=== PATIENT | female | born 1955 ===

== ENCOUNTER → 2021-09-26 | Outpatient (CLI) | payer MEDICARE, BC | END | disposition home or self-care (01) | LOC: LAB SHORT 13:21 → LAB 13:21 → PLD 13:21 | DX: C54.1 Malignant neoplasm of endometrium (principal); N95.0 Postmenopausal bleeding | CPT/HCPCS: 88305 ==

== ENCOUNTER → 2022-06-05 | Outpatient (CLI) | payer MEDICARE, BC | END | disposition home or self-care (01) | LOC: PLD 12:50 → LAB SHORT 12:50 | DX: L57.0 Actinic keratosis (principal) | CPT/HCPCS: 88305 ==

== ENCOUNTER 2022-07-11 06:44 | Day surgery (SDC) | payer MEDICARE, BC ==
[~2022-07-11] VITALS: Ht 170.2 cm; Wt 113.9 kg
[2022-07-11] VITALS (9 sets, daily range): BP systolic 97–150; BP diastolic 46–86
[~2022-07-11 06:44] MED LIST: MELO7.5
--- NOTE | 2022-07-11 08:27 | NUR ---
07/11/22 0827 DEBBIE RAYO NOTED BLISTER ON BACK OF RIGHT KNEE PRIOR TO OR ARRIVAL.
--- NOTE | 2022-07-11 09:37 | NUR ---
DR. TERAN AT DISCUSSING D/C INSTRUCTIONS AND MEDICATION WITH PT AND HER .
--- NOTE | 2022-07-11 10:18 | NUR ---
Ambulatory in Day Surgery WITH [facility], PT REPORTS SHE HAS A "BAD RIGHT HIP", ABLE TO VOID PRIOR TO D/C. OUT OF DEPT VIA W/C. WILL DRIVE HER HOME. PT STABLE
== END 2022-07-11 22:42 | disposition home or self-care (01) ==
LOC: ORSCMMR 06:44 → ORD 08:15 → ORSCMMR 08:15
PROVIDERS: Orthopaedic Surgery
PROC: 01N50ZZ Release Median Nerve, Open Approach (ICD-10-PCS; principal; 2022-07-11 08:00)
PROC: 01N40ZZ Release Ulnar Nerve, Open Approach (ICD-10-PCS; principal; 2022-07-11 08:00)
DX: G56.03 Carpal tunnel syndrome, bilateral upper limbs (principal); G56.22 Lesion of ulnar nerve, left upper limb; E66.01 Morbid (severe) obesity due to excess calories; Z68.39 Body mass index [BMI] 39.0-39.9, adult
CPT/HCPCS: A9270; J0690; J1100; J2250; J2370; J2405; J2704; J3010; J7120

== ENCOUNTER 2022-11-10 06:06 | Day surgery (SDC) | payer MEDICARE, BC ==
[~2022-11-10] VITALS: Ht 170.2 cm; Wt 111.3 kg
[2022-11-10 09:02] VITALS: BP 113/60
--- NOTE | 2022-11-10 09:46 | NUR ---
11/10/22 0946 Olga Cotton 1.5 ML OF FENTANYL WAS WASTED INSTEAD OF 1.75 ML. USED 12.5 MCG WAS USED.
== END 2022-11-10 09:52 | disposition home or self-care (01) ==
LOC: ORSCSDS 06:06
PROVIDERS: Orthopaedic Surgery
PROC: 01S40ZZ Reposition Ulnar Nerve, Open Approach (ICD-10-PCS; principal; 2022-11-10 07:30)
PROC: 01N50ZZ Release Median Nerve, Open Approach (ICD-10-PCS; principal; 2022-11-10 07:30)
DX: G56.01 Carpal tunnel syndrome, right upper limb (principal); G56.21 Lesion of ulnar nerve, right upper limb; E66.9 Obesity, unspecified; Z68.38 Body mass index [BMI] 38.0-38.9, adult; Z79.899 Other long term (current) drug therapy
CPT/HCPCS: A9270; J0171; J0690; J2250; J2704; J2795; J3010; J7120

== ENCOUNTER 2023-01-02 06:22 | Day surgery (SDC) | payer MEDICARE, BC ==
[2023-01-02] VITALS (22 sets, daily range): BP systolic 87–126; BP diastolic 42–79
[~2023-01-02] VITALS: Ht 170 cm; Wt 110.4 kg
[~2023-01-02 06:22] MED LIST changes: +APHEN325 MG PO
--- NOTE | 2023-01-02 16:55 | NUR ---
SHIFT SUMMARY PATIENT POD 0 R YANE. AQUACEL TO RIGHT HIP, C/D/I. POLAR KRISTEN, SCD'S IN PLACE. PATIENT WORKED WITH PT AND IS CURRENTLY UP IN THE CHAIR WITH 1 SBA AND ZACKERY, FWW. MEDICATED PER EMAR AND TOLERATING PO INTAKE. DENIES N/V. AWAITING FIRST POST OP VOID. SPINAL BLOCK IN SURGERY, PATIENT ABLE TO WIGGLE ALL EXT'S. VSS, PATIENT IS A/OX4 AND CALL LIGHT IS IN REACH.
[2023-01-03 04:01] VITALS: BP 135/60
--- NOTE | 2023-01-03 04:43 | NUR ---
SHIFT SUMMARY PT STATUS POST R TOTAL HIP. PT HAS RESTED OFF AND ON T/O THE NIGHT. INTERMITTENT PAIN RELIEVED WITH MEDS PER EMAR. PT HAS BEEN UP AND AMBULATING. PT VOIDING AND TOLERATING PO INTAKE. DRESSING C/D/I TO RIGHT HIP. PLAN IS FOR DC TODAY.
[2023-01-03 05:27] LABS: BASOPHILS ABSOLUTE AUTO 0.02 K/mm3 (0.00-0.23); BASOPHILS PERCENT AUTO 0 % (0-2); EOSINOPHILS ABSOLUTE AUTO 0.02 K/mm3 (0.00-0.68); EOSINOPHILS PERCENT AUTO 0 % (0-6); Hematocrit 29.7 % (33.0-51.0); Hemoglobin 10.1 g/dL (11.5-16.0); IMMATURE GRAN ABSOLUTE AUTO 0.04 K/mm3 (0.00-0.10); IMMATURE GRAN PERCENT AUTO 0 % (0-1); LYMPHOCYTES ABSOLUTE AUTO 1.42 K/mm3 (0.84-5.20); LYMPHOCYTES PERCENT AUTO 14 % (21-46); MONOCYTES ABSOLUTE AUTO 0.75 K/mm3 (0.16-1.47); MONOCYTES PERCENT AUTO 7 % (4-13); Mean Corpuscular HGB 30.1 pg (26.0-34.0); Mean Corpuscular Volume 89 fL (80-100); Mean Platelet Volume 10.9 fL (9.1-12.4); NEUTROPHILS ABSOLUTE AUTO 7.93 K/mm3 (1.96-9.15); NEUTROPHILS PERCENT AUTO 78 % (41-73); Platelet Count 194 K/mm3 (150-400); RDW Coefficient Variation 12.9 % (11.7-14.2); RDW Standard Deviation 41.8 fL (35.1-46.3); Red Blood Cell Count 3.35 M/mm3 (3.80-5.20); White Blood Cell Count 10.18 K/mm3 (4.00-11.30)
[2023-01-03 05:47] LABS: Bun/Creatinine Ratio 15.7 (12.0-20.0); Calcium, Blood 8.7 mg/dL (8.5-10.1); Creatinine, Blood 1.02 mg/dL (0.40-1.00)
[2023-01-03] MEDS ORDERED: ASPI81CH PO (07:17)
[2023-01-03] MEDS ORDERED: Percocet 5-3251 EACH PO (07:17)
[2023-01-03 07:28] VITALS: BP 90/56
--- NOTE | 2023-01-03 11:09 | NUR ---
DISCHARGE NOTE: PATIENT AND WERE EDUCATED ON DISCHARGE INSTRUCTIONS. BOTH VERBALIZED UNDERSTANDING OF INSTRUCTIONS AND HAD NO FURTHER QUESTIONS AT THIS TIME. HARD PERSCRIPTIONS WERE PLACED IN DISCHARGE FOLDER. IV WAS TAKEN OUT AND WNL. PAIN IS MANAGED WITH PO PAIN MEDS. HER RIGHT HIP HAS AN AQUACEL THAT IS C/D/I. DENIES NUMBNESS OR TINGLING IN ALL EXTREMITIES. SHE IS A SBA WITH FWW AND GAIT BELT. PATIENT IS DRESSED AND HAS PERSONAL ITEMS IN THE ROOM GATHERED. SHE WAS WHEELCHAIRED OUT TO HER HUSBANDS CAR TO BE TAKEN HOME. SHE IS VOIDING AND TOLERATING PO INTAKE.
== END 2023-01-03 11:03 | disposition home or self-care (01) ==
LOC: ORSCMMR 06:22 → ORD 07:30 → ORSCMMR 07:30 → SURS 10:24 → ORSCMMR 01-03 11:03
PROVIDERS: Orthopaedic Surgery
PROC: 0SR90JZ Replacement of Right Hip Joint with Synthetic Substitute, Open Approach (ICD-10-PCS; principal; 2023-01-02 07:30)
DX: M16.11 Unilateral primary osteoarthritis, right hip (principal); E66.9 Obesity, unspecified; Z68.38 Body mass index [BMI] 38.0-38.9, adult; N18.9 Chronic kidney disease, unspecified
CPT/HCPCS: 36415; 72170; 80048; 85025; 97110; 97116; 97162; A9270; C1776; J0171; J0690; J0735; J1885; J2704; J2795; J3010; J7120

== ENCOUNTER 2024-03-18 08:49 | Day surgery (SDC) | payer MEDICARE, BC ==
[~2024-03-18] VITALS: Ht 170.2 cm; Wt 105.7 kg
[2024-03-18] VITALS (13 sets, daily range): BP systolic 118–143; BP diastolic 53–95
[~2024-03-18 08:49] MED LIST changes: +ACET500 PO; +ASPI81CH PO; +Acetaminophen 500 MG Tab PO SCH; +CeFAZolin Sodium 2,000 MG in NS 100 ML IV SCH; +Chlorhexidine Mouth Care 15 ML UDC MT SCH; +Lactated Ringer's 1,000 ML IV SCH; +OxyCODONE HCL 10 MG TABCR PO SCH; +Percocet 5-3251 EACH PO; +Ropivacaine 0.5% HCl/Pf 123.125 MG,EPINEPHrine HCL 0.25 MG,Ketorolac Tromethamine 15 MG... INFIL SCH; +Tranexamic Acid 100 ML IV SCH
--- NOTE | 2024-03-18 09:09 | NUR ---
PATIENT AMBULATED INTO DAY SURGERY USING TWO WALKING STICKS, ACCOMPANIED BY , RAKESH. PATIENT GAVE PURSE AND WALKING STICKS TO RAKESH FOR SAFE KEEPING.
[2024-03-18] MEDS ORDERED: MAGNESIUM250 M1 PO (09:15)
[2024-03-18] MEDS ORDERED: CeFAZolin Sodium 2,000 MG VIAL ONE (09:43)
[2024-03-18] MEDS ORDERED: DiphenhydrAMINE HCL 25 MG Cap PO PRN (10:45)
[2024-03-18] MEDS ORDERED: Bisacodyl 10 MG Supp PR PRN (10:45)
[2024-03-18] MEDS ORDERED: OxyCODONE HCL 5 MG TAB PO PRN ×2 (10:50→11:00)
[2024-03-18] MEDS ORDERED: FLU VACC TS2024-25(6MOS UP)/PF 45 MCG/0.5 ML SYRINGE IM SCH (10:50)
[2024-03-18] MEDS ORDERED: Promethazine HCl 25 MG Tab PO PRN (10:50)
[2024-03-18] MEDS ORDERED: HYDROmorphone HCl/Pf 1MG SYR IV PRN (10:55)
[2024-03-18] MEDS ORDERED: Ondansetron HCl 2 MG / ML 2ML Vial IV PRN (10:55)
[2024-03-18] MEDS ORDERED: Magnesium Hydroxide Conc 10 ML UDC PO PRN (10:55)
[2024-03-18] MEDS ORDERED: Lactated Ringer's 1,000 ML IV SCH (10:55)
[2024-03-18] MEDS ORDERED: Metoclopramide HCl 5MG / ML 2ML Vial IV PRN (10:55)
[2024-03-18] MEDS ORDERED: propofoL 20 ML IV ONE ×2 (11:04→12:08)
[2024-03-18] MEDS ORDERED: Ondansetron HCl 2 MG / ML 2ML Vial ONE (11:04)
[2024-03-18] MEDS ORDERED: Metoclopramide HCl 5MG / ML 2ML Vial ONE (11:04)
[2024-03-18] MEDS ORDERED: FentaNYL Citrate 50 MCG/ML 5 ML Injection ONE (11:04)
[2024-03-18] MEDS ORDERED: Ketorolac Tromethamine 15mg Vial IV SCH (12:00)
[2024-03-18] MEDS ORDERED: Morphine Sulfate 4 MG/1 ML Injection ONE (13:29)
[2024-03-18] MEDS ORDERED: FentaNYL Citrate 50 MCG/ML 2 ML Injection ONE ×2 (13:29→14:01)
[2024-03-18] MEDS ORDERED: Acetaminophen 500 MG Tab PO SCH (16:00)
[2024-03-18] MEDS ORDERED: ASPI81CH PO (16:57)
--- NOTE | 2024-03-18 18:07 | NUR ---
DISCHARGE PT HAS WORKED w/ THERAPY. PAIN WELL CONTROLLED. EATING, DRINKING, & VOIDING WELL. RAGINI & ROLANDO RICH SENT w/ PT. ESCORTED OUT VIA W/C.
[2024-03-18] MEDS ORDERED: CeFAZolin Sodium 2,000 MG in NS 100 ML IV SCH (19:45)
[2024-03-18] MEDS ORDERED: Docusate Sodium 100 MG Cap PO SCH (21:00)
[2024-03-19] MEDS ORDERED: MAGNESIUM CITRATE 250 MG PO SCH (09:00)
[2024-03-19] MEDS ORDERED: Aspirin 81 MG Chew PO SCH (09:00)
== END 2024-03-18 18:05 | disposition home or self-care (01) ==
LOC: ORSCMMR 08:49 → ORD 10:00 → ORSCMMR 10:00 → SURS 14:07 → ORSCMMR 18:05
PROVIDERS: Orthopaedic Surgery
PROC: 0SRC0J9 Replacement of Right Knee Joint with Synthetic Substitute, Cemented, Open Approach (ICD-10-PCS; principal; 2024-03-18 10:00)
DX: M17.11 Unilateral primary osteoarthritis, right knee (principal); E66.9 Obesity, unspecified; Z68.36 Body mass index [BMI] 36.0-36.9, adult
CPT/HCPCS: 73560-RT; 97116; 97161; 97530; A9270; C1713; C1776; J0171; J0690; J0735; J1885; J2270; J2405; J2704; J2765; J2795; J3010; J7120